=== PATIENT | male | born 1935 | race Caucasian/White ===

== ENCOUNTER → 2016-04-08 | Outpatient (CLI) | payer OTHER ==
--- NOTE | 2016-04-08 13:53 | NM ---
Nuclear Medicine Whole Body Bone Scan Clinical History: 80-year-old male with a history of prostate cancer and a PSA level of 7.0 on 06/2015 ; evaluate for osseous metastases. ICD 10 Diagnostic Code: C61. Radiopharmaceutical: 21.0 mCi of IV technetium 99m MDP. TECHNIQUE: Approximately 3 to 4 hours after the uncomplicated intravenous administration of the radio pharmaceutical, anterior and posterior imaging of the axial and appendicular skeleton was obtained. COMPARISON STUDY: Whole body bone scan, dated October 01, 2015. FINDINGS: Previously-noted uptake associated with the inferior posterior right ischium has essentiall y resolved. There is some degenerative type distribution activity in the left C5-C6 facet joint, the right and left acromioclavicular joints, glenohumeral joints, sternoclavicular joints (right greater than left), less pronounced activity at the right seventh costovertebral junction, and stable mild de generative uptake associated with the lower lumbar spine, knees, and ankles. Uptake associated with t he kidneys is stable, including an irregular contour of the left kidney (which may be related to a du plicated collecting system, however unchanged). There is normal uptake within the urinary bladder, an d there is a small urinary contaminant overlying the distal portion of the penis. IMPRESSION: 1. There is no new evidence of osseous metastatic disease. 2. Activity associated with the right seventh costovertebral junction has diminished, and previous u ptake suspected at the inferior posterior right ischium has essentially resolved.
== END ==
LOC: FIMAGING 09:49
PROVIDERS: ATTEND Specialist
DX: Z12.89 Encounter for screening for malignant neoplasm of other sites (principal); C61 Malignant neoplasm of prostate
CPT/HCPCS: 78306; A9503

== ENCOUNTER → 2016-08-24 | Outpatient (CLI) | payer OTHER | LOC: CIMAGING 14:28 | PROVIDERS: ATTEND Podiatrist | DX: S92.522A Displaced fracture of middle phalanx of left lesser toe(s), initial encounter for closed fracture (principal); S90.122A Contusion of left lesser toe(s) without damage to nail, initial encounter | CPT/HCPCS: 73630-PO ==

== ENCOUNTER → 2016-09-24 | Outpatient (CLI) | payer OTHER | LOC: CIMAGING 08:19 | PROVIDERS: ATTEND Podiatrist | DX: S92.522D Displaced fracture of middle phalanx of left lesser toe(s), subsequent encounter for fracture with routine healing (principal) | CPT/HCPCS: 73630-PO ==

== ENCOUNTER → 2016-11-11 | Outpatient (CLI) | payer OTHER | LOC: FIMAGING 08:47 | PROVIDERS: ATTEND Specialist | DX: Z12.89 Encounter for screening for malignant neoplasm of other sites (principal); Z85.46 Personal history of malignant neoplasm of prostate | CPT/HCPCS: 78306; A9503 ==

== ENCOUNTER → 2016-11-12 | Outpatient (CLI) | payer OTHER | LOC: CIMAGING 14:41 | PROVIDERS: ATTEND Podiatrist | DX: S92.522D Displaced fracture of middle phalanx of left lesser toe(s), subsequent encounter for fracture with routine healing (principal) | CPT/HCPCS: 73630-PO ==

== ENCOUNTER → 2017-12-16 | Outpatient (CLI) | payer OTHER | LOC: CIMAGING 10:04 | PROVIDERS: ATTEND Nurse Practitioner | DX: M19.012 Primary osteoarthritis, left shoulder (principal) | CPT/HCPCS: 73030-PO ==